=== PATIENT | female | born 1970 | race Caucasian/White ===

== ENCOUNTER → 2023-09-20 | Outpatient (CLI) | payer OTHER, MEDICAID | LOC: MHCPAIN 10:48 | DX: M54.2 Cervicalgia (principal); M79.18 Myalgia, other site; M53.3 Sacrococcygeal disorders, not elsewhere classified | CPT/HCPCS: G0463 ==

== ENCOUNTER → 2023-11-01 | Outpatient (CLI) | payer OTHER, MEDICAID ==
[~2023-11-01] MED LIST: Lidocaine PF 1% (10 MG/ML) 5 ML VIAL ONE; Triamcinolone 40 MG/ML 1 ML VIAL ONE
== END ==
LOC: MHCPAIN 10:48
DX: M79.18 Myalgia, other site (principal); M54.2 Cervicalgia; M54.6 Pain in thoracic spine
CPT/HCPCS: J0665; J3301

== ENCOUNTER → 2024-03-17 | Outpatient (CLI) | payer MEDICARE ==
[~2024-03-17] MED LIST changes: +Iohexol 300 - 10 ML VIAL ONE; -Lidocaine PF 1% (10 MG/ML) 5 ML VIAL ONE
== END ==
LOC: MHCPAIN 11:42
DX: M54.50 Low back pain, unspecified (principal); M53.3 Sacrococcygeal disorders, not elsewhere classified; M79.18 Myalgia, other site
CPT/HCPCS: G0260; J3301; Q9967

== ENCOUNTER → 2024-04-24 | Outpatient (CLI) | payer MEDICARE ==
[~2024-04-24] MED LIST changes: -Iohexol 300 - 10 ML VIAL ONE; +Lidocaine PF 1% (10 MG/ML) 5 ML VIAL ONE
== END ==
LOC: MHCPAIN 10:54
DX: M79.18 Myalgia, other site (principal); M54.6 Pain in thoracic spine; M25.511 Pain in right shoulder; M25.512 Pain in left shoulder; G54.0 Brachial plexus disorders
CPT/HCPCS: J0665; J3301